=== PATIENT | male | born 1960 | race African-American/Black ===

== ENCOUNTER 2020-08-15 09:30 | Inpatient (IN) | payer OTHER ==
[2020-08-15 10:53] VITALS: BMI 31.1
[2020-08-15] MEDS ORDERED: IBUPROFEN 400 MG TABLET (FP) PO PRN (14:56)
[2020-08-15] MEDS ORDERED: MAG HYDROX/AL HYDROX/SIMETH 30 ML UNIT-DOSE CUP PO PRN (14:56)
[2020-08-15] MEDS ORDERED: BISMUTH SUBSALICYLATE 524 MG/30 ML UD PO PRN (14:56)
[2020-08-15] MEDS ORDERED: ACETAMINOPHEN 325 MG TABLET (FP) PO PRN (14:56)
[2020-08-15] MEDS ORDERED: MENTHOL/PHENOL 1 EACH UD MM PRN (14:56)
[2020-08-15] MEDS ORDERED: chlordiazePOXIDE HCL 25 MG CAPSULE PO PRN (14:56)
[2020-08-15] MEDS ORDERED: METHOCARBAMOL 500 MG TABLET PO PRN (14:56)
[2020-08-15] MEDS ORDERED: MAGNESIUM HYDROX 2400MG/30ML ORAL SUSPENSION 30 ML CUP PO PRN (14:56)
[2020-08-15] MEDS ORDERED: MAGNESIUM CITRATE 300 ML BOTTLE PO PRN (14:56)
[2020-08-15] MEDS ORDERED: ONDANSETRON *ODT* 4 MG TABLET SL PRN (14:56)
[2020-08-15] MEDS: chlordiazePOXIDE HCL 25 MG CAPSULE PO SCH ×2 (18:51→22:47)
[2020-08-15] MEDS: hydrOXYzine PAMOATE 25 MG CAPSULE (FP) PO SCH ×2 (18:53→22:50)
[2020-08-15] MEDS: THIAMINE HCL 100 MG TABLET (FP) PO SCH (22:50)
[2020-08-15] MEDS: MELATONIN 5 MG TABLETS PO SCH (22:50)
[2020-08-16] MEDS: chlordiazePOXIDE HCL 25 MG CAPSULE PO SCH ×4 (06:09→23:07)
[2020-08-16] MEDS: hydrOXYzine PAMOATE 25 MG CAPSULE (FP) PO SCH ×5 (06:09→23:45)
[2020-08-16] MEDS: PRENATAL VITAMINS W/ FOLIC ACID TABLET (FP) PO SCH (10:40)
[2020-08-16] MEDS: amLODIPine BESYLATE 10 MG TABLET (FP) PO SCH (12:01)
[2020-08-16 12:04] LABS: POTASSIUM 3.4 mmol/L (3.5-5.1)
[2020-08-16 12:12] LABS: CALCIUM 8.5 mg/dL (8.5-10.1)
[2020-08-16 12:13] LABS: ALBUMIN 2.8 g/dl (3.4-5.0); BLOOD UREA NITROGEN 15.5 mg/dL (7-18)
[2020-08-16 12:15] LABS: HEMATOCRIT 37.7 % (35.4-49); HEMOGLOBIN 12.5 GM/dL (11.7-16.9); MCH 27.9 pg (25.7-33.7); MCHC 33.2 g/dl (32.0-35.9); MEAN PLT VOLUME 10.4 fl (7.5-11.1); PLATELET COUNT 94 K/MM3 (134-434); RBC 4.49 M/mm3 (4.00-5.60); RDW 15.2 % (11.9-15.9)
[2020-08-16 12:16] LABS: CREATININE 1.3 mg/dL (0.55-1.3)
[2020-08-16 13:03] LABS: HIV INTERPRETATION NEGATIVE (NEGATIVE)
[2020-08-16] MEDS: LISINOPRIL 10 MG TABLET PO SCH ×2 (13:45→23:06)
[2020-08-16 14:39] LABS: SICKLE CELL SCREEN NEGATIVE (NEGATIVE)
[2020-08-16 14:42] LABS: WHITE BLOOD COUNT 1.9 K/mm3 (4.0-10.0)
[2020-08-16] MEDS ORDERED: POTASSIUM CHLORIDE ORAL LIQUID 20 MEQ/15 ML PO ONE (15:33)
[2020-08-16] MEDS: ACETAMINOPHEN 325 MG TABLET (FP) PO PRN (23:05)
[2020-08-16] MEDS: POTASSIUM CHLORIDE ORAL LIQUID 20 MEQ/15 ML PO SCH (23:06)
[2020-08-16] MEDS: MELATONIN 5 MG TABLETS PO SCH (23:11)
[2020-08-16] MEDS: THIAMINE HCL 100 MG TABLET (FP) PO SCH (23:45)
[2020-08-17] MEDS: chlordiazePOXIDE HCL 25 MG CAPSULE PO SCH ×4 (06:42→23:56)
[2020-08-17] MEDS: hydrOXYzine PAMOATE 25 MG CAPSULE (FP) PO SCH ×5 (06:45→23:56)
[2020-08-17] MEDS: amLODIPine BESYLATE 10 MG TABLET (FP) PO SCH (11:10)
[2020-08-17] MEDS: PRENATAL VITAMINS W/ FOLIC ACID TABLET (FP) PO SCH (11:10)
[2020-08-17] MEDS: ACETAMINOPHEN 325 MG TABLET (FP) PO PRN (11:11)
[2020-08-17] MEDS: LISINOPRIL 20 MG TABLET PO SCH ×2 (11:11→23:56)
[2020-08-17] MEDS: LISINOPRIL 10 MG TABLET PO SCH (11:17)
[2020-08-17] MEDS: POTASSIUM CHLORIDE ORAL LIQUID 20 MEQ/15 ML PO SCH ×2 (12:00→23:57)
[2020-08-17 15:57] LABS: PH,URINE 7.5 (5.0-8.0); URINE APPEARANCE CLEAR; URINE BILIRUBIN NEGATIVE (NEGATIVE); URINE COLOR YELLOW; URINE GLUCOSE (UA) 3+ (NEGATIVE); URINE KETONE NEGATIVE (NEGATIVE); URINE LEUK ESTERASE NEGATIVE (NEGATIVE); URINE NITRITE NEGATIVE (NEGATIVE); URINE PROTEIN NEGATIVE (NEGATIVE); URINE UROBILINOGEN 0.2 mg/dL (0.2-1.0)
[2020-08-17 16:00] LABS: HEMATOCRIT 41.4 % (35.4-49); HEMOGLOBIN 13.8 GM/dL (11.7-16.9); MCH 28.2 pg (25.7-33.7); MCHC 33.3 g/dl (32.0-35.9); MEAN CELL VOLUME 84.8 fl (80-96); RBC 4.88 M/mm3 (4.00-5.60); WHITE BLOOD COUNT 2.1 K/mm3 (4.0-10.0)
[2020-08-17 16:14] LABS: POTASSIUM 3.6 mmol/L (3.5-5.1)
[2020-08-17 16:22] LABS: ALBUMIN 3.5 g/dl (3.4-5.0); BLOOD UREA NITROGEN 9.7 mg/dL (7-18); CALCIUM 8.9 mg/dL (8.5-10.1); CREATININE 1.2 mg/dL (0.55-1.3)
[2020-08-17 16:23] LABS: INR 0.93 (0.83-1.09); PROTHROMBIN TIME (PATIENT) 11.3 SEC (9.7-13.0); TOT PROT 6.3 g/dl (6.4-8.2)
[2020-08-17 16:25] LABS: BILIRUBIN,TOTAL 0.9 mg/dL (0.2-1)
[2020-08-17 21:33] LABS: MEAN PLT VOLUME 10.5 fl (7.5-11.1); PLATELET COUNT 66 K/MM3 (134-434)
[2020-08-17] MEDS: THIAMINE HCL 100 MG TABLET (FP) PO SCH (23:56)
[2020-08-17] MEDS: MELATONIN 5 MG TABLETS PO SCH (23:56)
[2020-08-18] MEDS ORDERED: chlordiazePOXIDE HCL 10 MG CAPSULE PO PRN
[2020-08-18] MEDS: chlordiazePOXIDE HCL 10 MG CAPSULE PO SCH ×4 (05:40→23:01)
[2020-08-18] MEDS: hydrOXYzine PAMOATE 25 MG CAPSULE (FP) PO SCH ×5 (05:40→23:01)
[2020-08-18] MEDS: amLODIPine BESYLATE 10 MG TABLET (FP) PO SCH (10:46)
[2020-08-18] MEDS: PRENATAL VITAMINS W/ FOLIC ACID TABLET (FP) PO SCH (10:46)
[2020-08-18] MEDS: LISINOPRIL 20 MG TABLET PO SCH ×2 (10:46→23:01)
[2020-08-18] MEDS: POTASSIUM CHLORIDE ORAL LIQUID 20 MEQ/15 ML PO SCH ×2 (10:47→23:02)
[2020-08-18] MEDS: MELATONIN 5 MG TABLETS PO SCH (23:01)
[2020-08-18] MEDS: THIAMINE HCL 100 MG TABLET (FP) PO SCH (23:01)
[2020-08-19] MEDS ORDERED: chlordiazePOXIDE HCL 10 MG CAPSULE PO SCH (05:00)
[2020-08-19] MEDS: hydrOXYzine PAMOATE 25 MG CAPSULE (FP) PO SCH ×3 (07:06→13:26)
[2020-08-19] MEDS: LISINOPRIL 20 MG TABLET PO SCH (11:13)
[2020-08-19] MEDS: PRENATAL VITAMINS W/ FOLIC ACID TABLET (FP) PO SCH (11:13)
[2020-08-19] MEDS: amLODIPine BESYLATE 10 MG TABLET (FP) PO SCH (11:13)
[2020-08-19 13:18] VITALS: BP 118/68; PULSE 83; TEMP 98.3
[2020-08-20] MEDS ORDERED: chlordiazePOXIDE HCL 10 MG CAPSULE PO ONE (05:00)
== END 2020-08-19 13:35 | disposition home or self-care (01) | DRG 774 ==
LOC: YASAS 09:30 → Y6N 14:57
PROVIDERS: ADMIT Allergy & Immunology; ATTEND Allergy & Immunology
PROC: HZ2ZZZZ Detoxification Services for Substance Abuse Treatment (ICD-10-PCS; principal; 2020-08-15)
DX: F10.230 Alcohol dependence with withdrawal, uncomplicated (principal); F14.20 Cocaine dependence, uncomplicated; F12.20 Cannabis dependence, uncomplicated; F32.9 Major depressive disorder, single episode, unspecified; I10 Essential (primary) hypertension; E87.6 Hypokalemia; R73.9 Hyperglycemia, unspecified; U07.1 COVID-19; D72.819 Decreased white blood cell count, unspecified; D69.6 Thrombocytopenia, unspecified; W18.40XA Slipping, tripping and stumbling without falling, unspecified, initial encounter; Z56.0 Unemployment, unspecified
CPT/HCPCS: 36415; 80053; 81003; 82962; 85027; 85610; 85660; 86780; 87389; 93005; 93010; C9803; U0003

== ENCOUNTER 2020-11-20 11:20 | Inpatient (IN) | payer OTHER ==
[2020-11-20 15:46] VITALS: BMI 28.5
[2020-11-20] MEDS ORDERED: IBUPROFEN 400 MG TABLET (FP) PO PRN (18:06)
[2020-11-20] MEDS ORDERED: ONDANSETRON *ODT* 4 MG TABLET SL PRN (18:06)
[2020-11-20] MEDS ORDERED: MAGNESIUM HYDROX 2400MG/30ML ORAL SUSPENSION 30 ML CUP PO PRN (18:06)
[2020-11-20] MEDS ORDERED: METHOCARBAMOL 500 MG TABLET PO PRN (18:06)
[2020-11-20] MEDS ORDERED: MAG HYDROX/AL HYDROX/SIMETH 30 ML UNIT-DOSE CUP PO PRN (18:06)
[2020-11-20] MEDS ORDERED: chlordiazePOXIDE HCL 25 MG CAPSULE PO PRN (18:06)
[2020-11-20] MEDS ORDERED: ACETAMINOPHEN 325 MG TABLET (FP) PO PRN ×2 (18:06)
[2020-11-20] MEDS ORDERED: BISMUTH SUBSALICYLATE 524 MG/30 ML UD PO PRN (18:06)
[2020-11-20] MEDS ORDERED: MAGNESIUM CITRATE 300 ML BOTTLE PO PRN (18:06)
[2020-11-20] MEDS ORDERED: MENTHOL/PHENOL 1 EACH UD MM PRN (18:06)
[2020-11-20] MEDS: APIXABAN 5 MG TABLET PO SCH (23:04)
[2020-11-20] MEDS: MELATONIN 5 MG TABLETS PO SCH (23:04)
[2020-11-20] MEDS: chlordiazePOXIDE HCL 25 MG CAPSULE PO SCH (23:04)
[2020-11-20] MEDS: THIAMINE HCL 100 MG TABLET (FP) PO SCH (23:04)
[2020-11-21] MEDS ORDERED: chlordiazePOXIDE HCL 25 MG CAPSULE ONE (05:37)
[2020-11-21] MEDS: chlordiazePOXIDE HCL 25 MG CAPSULE PO SCH ×4 (05:40→23:35)
[2020-11-21 10:32] LABS: HEMOGLOBIN 12.8 GM/dL (11.7-16.9); MCH 28.3 pg (25.7-33.7); MCHC 33.7 g/dl (32.0-35.9); MEAN CELL VOLUME 83.8 fl (80-96); MEAN PLT VOLUME 9.6 fl (7.5-11.1); PLATELET COUNT 115 K/MM3 (134-434); RBC 4.53 M/mm3 (4.00-5.60); RDW 16.6 % (11.9-15.9)
[2020-11-21 10:59] LABS: ALBUMIN 2.9 g/dl (3.4-5.0); BLOOD UREA NITROGEN 18.6 mg/dL (7-18); CALCIUM 8.9 mg/dL (8.5-10.1)
[2020-11-21 11:03] LABS: BILIRUBIN,TOTAL 0.3 mg/dL (0.2-1); CREATININE 1.2 mg/dL (0.55-1.3); TOT PROT 5.4 g/dl (6.4-8.2)
[2020-11-21 11:57] LABS: WHITE BLOOD COUNT 1.8 K/mm3 (4.0-10.0)
[2020-11-21] MEDS: PRENATAL VITAMINS W/ FOLIC ACID TABLET (FP) PO SCH (12:21)
[2020-11-21] MEDS: APIXABAN 5 MG TABLET PO SCH ×2 (12:21→23:35)
[2020-11-21] MEDS: amLODIPine BESYLATE 10 MG TABLET (FP) PO SCH (12:21)
[2020-11-21] MEDS: metFORMIN HCL 500 MG TABLET (FP) PO SCH (17:40)
[2020-11-21] MEDS: THIAMINE HCL 100 MG TABLET (FP) PO SCH (23:36)
[2020-11-21] MEDS: MELATONIN 5 MG TABLETS PO SCH (23:36)
[2020-11-22] MEDS: metFORMIN HCL 500 MG TABLET (FP) PO SCH ×3 (00:52→17:54)
[2020-11-22] MEDS: chlordiazePOXIDE HCL 25 MG CAPSULE PO SCH ×4 (06:02→22:06)
[2020-11-22] MEDS: PRENATAL VITAMINS W/ FOLIC ACID TABLET (FP) PO SCH (10:16)
[2020-11-22] MEDS: amLODIPine BESYLATE 10 MG TABLET (FP) PO SCH (10:17)
[2020-11-22] MEDS: APIXABAN 5 MG TABLET PO SCH ×2 (11:37→22:07)
[2020-11-22] MEDS ORDERED: METOPROLOL TARTRATE 25 MG TABLET (FP) PO ONE (21:19)
[2020-11-22] MEDS: MELATONIN 5 MG TABLETS PO SCH (22:07)
[2020-11-22] MEDS: THIAMINE HCL 100 MG TABLET (FP) PO SCH (22:07)
[2020-11-23] MEDS ORDERED: chlordiazePOXIDE HCL 10 MG CAPSULE PO PRN
[2020-11-23] MEDS: chlordiazePOXIDE HCL 10 MG CAPSULE PO SCH ×2 (06:06→11:38)
[2020-11-23] MEDS: metFORMIN HCL 500 MG TABLET (FP) PO SCH (07:37)
[2020-11-23 08:56] VITALS: BP 142/92; PULSE 91; TEMP 96.9
[2020-11-23] MEDS: amLODIPine BESYLATE 10 MG TABLET (FP) PO SCH (11:38)
[2020-11-23] MEDS: APIXABAN 5 MG TABLET PO SCH (11:38)
[2020-11-23] MEDS: PRENATAL VITAMINS W/ FOLIC ACID TABLET (FP) PO SCH (11:38)
[2020-11-23 11:52] LABS: HEMOGLOBIN 11.9 GM/dL (11.7-16.9)
[2020-11-23 11:56] LABS: BASO % 1.7 % (0-2.0); EOS % 3.9 % (0-4.5); HEMATOCRIT 35.9 % (35.4-49); MCH 28.1 pg (25.7-33.7); MCHC 33.2 g/dl (32.0-35.9); MEAN CELL VOLUME 84.4 fl (80-96); MONO % 16.9 % (3.8-10.2); NEUT % 32.5 % (42.8-82.8); PLATELET COUNT 98 K/MM3 (134-434); RBC 4.25 M/mm3 (4.00-5.60); RDW 17.2 % (11.9-15.9)
[2020-11-23 12:03] LABS: WHITE BLOOD COUNT 1.7 K/mm3 (4.0-10.0)
[2020-11-23 13:15] LABS: ANISOCYTOSIS 0; MACROCYTOSIS 0; OVALOCYTE 1+; PLATELET ESTIMATE DECREASED
[2020-11-24] MEDS ORDERED: chlordiazePOXIDE HCL 10 MG CAPSULE PO SCH (05:00)
[2020-11-25] MEDS ORDERED: chlordiazePOXIDE HCL 10 MG CAPSULE PO ONE (05:00)
== END 2020-11-23 13:33 | disposition left against medical advice (07) | DRG 770 ==
LOC: YASAS 11:20 → Y3N 11-21 10:02
PROVIDERS: ADMIT Allergy & Immunology; ATTEND Allergy & Immunology
PROC: HZ2ZZZZ Detoxification Services for Substance Abuse Treatment (ICD-10-PCS; principal; 2020-11-21)
DX: F10.230 Alcohol dependence with withdrawal, uncomplicated (principal); F14.20 Cocaine dependence, uncomplicated; F12.20 Cannabis dependence, uncomplicated; F32.9 Major depressive disorder, single episode, unspecified; Z21 Asymptomatic human immunodeficiency virus [HIV] infection status; D72.819 Decreased white blood cell count, unspecified; E11.9 Type 2 diabetes mellitus without complications; Z79.84 Long term (current) use of oral hypoglycemic drugs; E78.5 Hyperlipidemia, unspecified; I10 Essential (primary) hypertension; Z86.711 Personal history of pulmonary embolism; Z79.01 Long term (current) use of anticoagulants; Z86.16 Personal history of COVID-19; Z98.890 Other specified postprocedural states; Z56.0 Unemployment, unspecified; Z59.0 Homelessness
CPT/HCPCS: 36415; 80053; 82962; 85025; 85027; 86780

== ENCOUNTER 2021-01-26 12:15 | Inpatient (IN) | payer OTHER ==
[2021-01-26 13:24] VITALS: BMI 29.1
[2021-01-26] MEDS ORDERED: ONDANSETRON *ODT* 4 MG TABLET SL PRN (13:44)
[2021-01-26] MEDS ORDERED: MAG HYDROX/AL HYDROX/SIMETH 30 ML UNIT-DOSE CUP PO PRN (13:44)
[2021-01-26] MEDS ORDERED: MENTHOL/PHENOL 1 EACH UD MM PRN (13:44)
[2021-01-26] MEDS ORDERED: LORazepam 1 MG TABLET PO PRN (13:44)
[2021-01-26] MEDS ORDERED: ACETAMINOPHEN 325 MG TABLET (FP) PO PRN (13:44)
[2021-01-26] MEDS ORDERED: BISMUTH SUBSALICYLATE 524 MG/30 ML PO PRN (13:44)
[2021-01-26] MEDS ORDERED: IBUPROFEN 400 MG TABLET (FP) PO PRN (13:44)
[2021-01-26] MEDS ORDERED: MAGNESIUM HYDROX 2400MG/30ML ORAL SUSPENSION 30 ML CUP PO PRN (13:44)
[2021-01-26] MEDS ORDERED: MAGNESIUM CITRATE 300 ML BOTTLE PO PRN (13:44)
[2021-01-26] MEDS ORDERED: APIXABAN 5 MG TABLET PO SCH (13:45)
[2021-01-26 16:18] LABS: HEMATOCRIT 38.3 % (35.4-49); HEMOGLOBIN 12.7 GM/dL (11.7-16.9); MCH 27.4 pg (25.7-33.7); MEAN CELL VOLUME 82.9 fl (80-96); MEAN PLT VOLUME 9.3 fl (7.5-11.1); PLATELET COUNT 118 10^3/uL (134-434); RBC 4.62 M/mm3 (4.00-5.60); RDW 16.2 % (11.9-15.9); WHITE BLOOD COUNT 2.4 K/mm3 (4.0-10.0)
[2021-01-26 16:23] LABS: ALBUMIN 3.5 g/dl (3.4-5.0); BLOOD UREA NITROGEN 20.3 mg/dL (7-18); CALCIUM 8.5 mg/dL (8.5-10.1)
[2021-01-26 16:26] LABS: CREATININE 1.3 mg/dL (0.55-1.3)
[2021-01-26 16:28] LABS: BILIRUBIN,TOTAL 0.8 mg/dL (0.2-1); TOT PROT 5.9 g/dl (6.4-8.2)
[2021-01-26] MEDS: LORazepam 2 MG TABLET PO SCH ×2 (18:13→22:19)
[2021-01-26] MEDS: amLODIPine BESYLATE 10 MG TABLET (FP) PO SCH (18:14)
[2021-01-26] MEDS: PRENATAL VITAMINS W/ FOLIC ACID TABLET (FP) PO SCH (18:15)
[2021-01-26] MEDS: hydrOXYzine PAMOATE 25 MG CAPSULE (FP) PO SCH ×3 (18:15→22:19)
[2021-01-26] MEDS: metFORMIN HCL 500 MG TABLET (FP) PO SCH (18:15)
[2021-01-26] MEDS: METHOCARBAMOL 500 MG TABLET PO PRN (18:16)
[2021-01-26] MEDS ORDERED: MELATONIN 5 MG TABLETS PO SCH (22:00)
[2021-01-26] MEDS: APIXABAN 5 MG TABLET PO SCH (22:18)
[2021-01-26] MEDS: THIAMINE HCL 100 MG TABLET (FP) PO SCH (22:19)
[2021-01-27] MEDS: hydrOXYzine PAMOATE 25 MG CAPSULE (FP) PO SCH ×5 (06:11→22:27)
[2021-01-27] MEDS: metFORMIN HCL 500 MG TABLET (FP) PO SCH ×2 (06:13→17:25)
[2021-01-27] MEDS: LORazepam 2 MG TABLET PO SCH ×4 (06:13→22:27)
[2021-01-27] MEDS: PRENATAL VITAMINS W/ FOLIC ACID TABLET (FP) PO SCH (10:45)
[2021-01-27] MEDS: ACETAMINOPHEN 325 MG TABLET (FP) PO PRN (10:46)
[2021-01-27] MEDS: amLODIPine BESYLATE 10 MG TABLET (FP) PO SCH (10:46)
[2021-01-27] MEDS: APIXABAN 5 MG TABLET PO SCH ×2 (10:46→22:26)
[2021-01-27] MEDS: INSULIN SLIDING SCALE (NOVOLOG) 1 VIAL SQ SCH ×3 (11:43→22:26)
[2021-01-27] MEDS ORDERED: MELATONIN 5 MG TABLETS PO PRN (15:35)
[2021-01-27] MEDS: THIAMINE HCL 100 MG TABLET (FP) PO SCH (22:27)
[2021-01-28] MEDS: hydrOXYzine PAMOATE 25 MG CAPSULE (FP) PO SCH ×5 (06:23→22:19)
[2021-01-28] MEDS: metFORMIN HCL 500 MG TABLET (FP) PO SCH ×2 (06:24→17:56)
[2021-01-28] MEDS: LORazepam 1 MG TABLET PO SCH ×4 (06:27→22:16)
[2021-01-28] MEDS: ACETAMINOPHEN 325 MG TABLET (FP) PO PRN ×2 (06:28→17:54)
[2021-01-28] MEDS: INSULIN SLIDING SCALE (NOVOLOG) 1 VIAL SQ SCH ×4 (06:28→22:22)
[2021-01-28] MEDS: PRENATAL VITAMINS W/ FOLIC ACID TABLET (FP) PO SCH (10:32)
[2021-01-28] MEDS: amLODIPine BESYLATE 10 MG TABLET (FP) PO SCH (10:32)
[2021-01-28] MEDS: APIXABAN 5 MG TABLET PO SCH ×2 (10:32→22:15)
[2021-01-28] MEDS: METHOCARBAMOL 500 MG TABLET PO PRN (12:02)
[2021-01-28] MEDS ORDERED: BENZOCAINE 20 % GEL TUBE MM PRN (15:38)
[2021-01-28] MEDS: THIAMINE HCL 100 MG TABLET (FP) PO SCH (22:15)
[2021-01-29] MEDS ORDERED: LORazepam 0.5 MG TABLET PO PRN
[2021-01-29] MEDS: LORazepam 0.5 MG TABLET PO SCH ×4 (05:39→23:28)
[2021-01-29] MEDS: hydrOXYzine PAMOATE 25 MG CAPSULE (FP) PO SCH ×5 (05:39→23:27)
[2021-01-29] MEDS: ACETAMINOPHEN 325 MG TABLET (FP) PO PRN ×3 (05:50→17:54)
[2021-01-29] MEDS: metFORMIN HCL 500 MG TABLET (FP) PO SCH ×2 (07:09→17:52)
[2021-01-29] MEDS: INSULIN SLIDING SCALE (NOVOLOG) 1 VIAL SQ SCH ×4 (07:10→23:22)
[2021-01-29] MEDS: PRENATAL VITAMINS W/ FOLIC ACID TABLET (FP) PO SCH (10:35)
[2021-01-29] MEDS: APIXABAN 5 MG TABLET PO SCH ×2 (10:35→23:22)
[2021-01-29] MEDS: amLODIPine BESYLATE 10 MG TABLET (FP) PO SCH (10:36)
[2021-01-29 12:08] LABS: SARS-CoV-2 NAA Not Detected (Not Detected)
[2021-01-29] MEDS: METHOCARBAMOL 500 MG TABLET PO PRN (14:20)
[2021-01-29] MEDS: THIAMINE HCL 100 MG TABLET (FP) PO SCH (23:27)
[2021-01-30] MEDS ORDERED: LORazepam 0.5 MG TABLET PO ONE (05:00)
[2021-01-30] MEDS: hydrOXYzine PAMOATE 25 MG CAPSULE (FP) PO SCH ×3 (05:58→13:13)
[2021-01-30] MEDS: ACETAMINOPHEN 325 MG TABLET (FP) PO PRN ×2 (05:59→15:16)
[2021-01-30] MEDS: INSULIN SLIDING SCALE (NOVOLOG) 1 VIAL SQ SCH ×2 (08:01→10:14)
[2021-01-30] MEDS: metFORMIN HCL 500 MG TABLET (FP) PO SCH (08:02)
[2021-01-30] MEDS: amLODIPine BESYLATE 10 MG TABLET (FP) PO SCH (10:13)
[2021-01-30] MEDS: PRENATAL VITAMINS W/ FOLIC ACID TABLET (FP) PO SCH (10:13)
[2021-01-30] MEDS: APIXABAN 5 MG TABLET PO SCH (10:14)
[2021-01-30 13:49] VITALS: BP 135/82; PULSE 108; TEMP 97.9
== END 2021-01-30 16:00 | disposition other institution (70) | DRG 774 ==
LOC: YASAS 12:15 → Y6N 14:22 → Y3N 14:29
PROVIDERS: ADMIT Allergy & Immunology; ATTEND Allergy & Immunology
PROC: HZ2ZZZZ Detoxification Services for Substance Abuse Treatment (ICD-10-PCS; principal; 2021-01-26)
DX: F10.230 Alcohol dependence with withdrawal, uncomplicated (principal); F14.20 Cocaine dependence, uncomplicated; F12.20 Cannabis dependence, uncomplicated; F19.24 Other psychoactive substance dependence with psychoactive substance-induced mood disorder; F19.282 Other psychoactive substance dependence with psychoactive substance-induced sleep disorder; I10 Essential (primary) hypertension; D69.6 Thrombocytopenia, unspecified; D72.819 Decreased white blood cell count, unspecified; N17.9 Acute kidney failure, unspecified; E11.9 Type 2 diabetes mellitus without complications; E78.5 Hyperlipidemia, unspecified; Z86.711 Personal history of pulmonary embolism; Z88.8 Allergy status to other drugs, medicaments and biological substances; Z79.84 Long term (current) use of oral hypoglycemic drugs
CPT/HCPCS: 36415; 80053; 82962; 85027; 86780; C9803; U0003; U0005

== ENCOUNTER 2021-01-30 16:42 | Inpatient (IN) | payer OTHER ==
[2021-01-30] MEDS ORDERED: IBUPROFEN 400 MG TABLET (FP) PO PRN (17:10)
[2021-01-30] MEDS ORDERED: MAG HYDROX/AL HYDROX/SIMETH 30 ML UNIT-DOSE CUP PO PRN (17:10)
[2021-01-30] MEDS ORDERED: NICOTINE POLACRILEX 2 MG GUM BUC PRN (17:10)
[2021-01-30] MEDS ORDERED: MENTHOL/PHENOL 1 EACH UD MM PRN (17:10)
[2021-01-30] MEDS ORDERED: P-EPHED 60MG/TRIPROLIDI 2.5MG TABLET PO PRN (17:10)
[2021-01-30] MEDS ORDERED: guaiFENesin 200 MG/10 ML 10 ML UNIT-DOSE CUPS PO PRN (17:10)
[2021-01-30] MEDS ORDERED: LOPERAMIDE HCL 2 MG CAPSULE PO PRN (17:10)
[2021-01-30] MEDS ORDERED: MAGNESIUM CITRATE 300 ML BOTTLE PO PRN (17:10)
[2021-01-30] MEDS: ACETAMINOPHEN 325 MG TABLET (FP) PO PRN (20:01)
[2021-01-30] MEDS: hydrOXYzine PAMOATE 25 MG CAPSULE (FP) PO PRN (20:01)
[2021-01-30] MEDS ORDERED: cloNIDine HCL 0.1 MG TABLET PO ONE (20:22)
[2021-01-30] MEDS: THIAMINE HCL 100 MG TABLET (FP) PO SCH (21:06)
[2021-01-30] MEDS: MELATONIN 5 MG TABLETS PO SCH (21:06)
[2021-01-30] MEDS: APIXABAN 5 MG TABLET PO SCH (21:07)
[2021-01-31] MEDS: INSULIN SLIDING SCALE (NOVOLOG) 1 VIAL SQ SCH ×2 (06:27→17:36)
[2021-01-31] MEDS: ACETAMINOPHEN 325 MG TABLET (FP) PO PRN (06:28)
[2021-01-31] MEDS: metFORMIN HCL 500 MG TABLET (FP) PO SCH ×2 (06:29→17:36)
[2021-01-31] MEDS: PRENATAL VITAMINS W/ FOLIC ACID TABLET (FP) PO SCH (09:40)
[2021-01-31] MEDS: amLODIPine BESYLATE 10 MG TABLET (FP) PO SCH (09:40)
[2021-01-31] MEDS: APIXABAN 5 MG TABLET PO SCH ×2 (09:41→21:06)
[2021-01-31] MEDS ORDERED: INSULIN (NOVOLOG) ASPART 100 UNITS/ML 10ML VIAL ONE (17:14)
[2021-01-31] MEDS: MELATONIN 5 MG TABLETS PO SCH (21:06)
[2021-01-31] MEDS: THIAMINE HCL 100 MG TABLET (FP) PO SCH (21:06)
[2021-01-31] MEDS: hydrOXYzine PAMOATE 25 MG CAPSULE (FP) PO PRN (21:07)
[2021-02-01] MEDS: hydrOXYzine PAMOATE 25 MG CAPSULE (FP) PO PRN (01:11)
[2021-02-01] MEDS: ACETAMINOPHEN 325 MG TABLET (FP) PO PRN ×3 (01:11→16:54)
[2021-02-01] MEDS: metFORMIN HCL 500 MG TABLET (FP) PO SCH ×2 (06:27→16:54)
[2021-02-01] MEDS: INSULIN SLIDING SCALE (NOVOLOG) 1 VIAL SQ SCH ×2 (06:28→17:59)
[2021-02-01] MEDS: APIXABAN 5 MG TABLET PO SCH ×2 (10:04→21:12)
[2021-02-01] MEDS: amLODIPine BESYLATE 10 MG TABLET (FP) PO SCH (10:04)
[2021-02-01] MEDS: PRENATAL VITAMINS W/ FOLIC ACID TABLET (FP) PO SCH (10:04)
[2021-02-01] MEDS ORDERED: INSULIN (NOVOLOG MIX 70/30) 100 UNITS/ML MDV SQ ONE (17:32)
[2021-02-01] MEDS: THIAMINE HCL 100 MG TABLET (FP) PO SCH (21:12)
[2021-02-01] MEDS: SUVOREXANT 10 MG TABLET PO PRN (21:14)
[2021-02-02] MEDS: ACETAMINOPHEN 325 MG TABLET (FP) PO PRN ×4 (02:01→21:37)
[2021-02-02] MEDS: hydrOXYzine PAMOATE 25 MG CAPSULE (FP) PO PRN ×2 (06:20→21:37)
[2021-02-02] MEDS: metFORMIN HCL 500 MG TABLET (FP) PO SCH ×2 (06:20→16:59)
[2021-02-02] MEDS: INSULIN SLIDING SCALE (NOVOLOG) 1 VIAL SQ SCH ×2 (06:21→17:01)
[2021-02-02] MEDS ORDERED: LIDOCAINE VISCOUS 2% ORAL/TOP 20 ML UNIT-DOSE CUP MM PRN (09:41)
[2021-02-02] MEDS: PRENATAL VITAMINS W/ FOLIC ACID TABLET (FP) PO SCH (09:48)
[2021-02-02] MEDS: MAGNESIUM HYDROX 2400MG/30ML ORAL SUSPENSION 30 ML CUP PO PRN (09:49)
[2021-02-02] MEDS: APIXABAN 5 MG TABLET PO SCH ×2 (09:49→21:38)
[2021-02-02] MEDS: amLODIPine BESYLATE 10 MG TABLET (FP) PO SCH (09:49)
[2021-02-02] MEDS ORDERED: INSULIN (NOVOLOG) ASPART 100 UNITS/ML 10ML VIAL ONE (16:56)
[2021-02-02] MEDS: THIAMINE HCL 100 MG TABLET (FP) PO SCH (21:37)
[2021-02-02] MEDS: SUVOREXANT 10 MG TABLET PO PRN (21:38)
[2021-02-03] MEDS: ACETAMINOPHEN 325 MG TABLET (FP) PO PRN ×2 (03:29→09:58)
[2021-02-03] MEDS: hydrOXYzine PAMOATE 25 MG CAPSULE (FP) PO PRN (03:29)
[2021-02-03] MEDS: metFORMIN HCL 500 MG TABLET (FP) PO SCH ×2 (06:14→16:48)
[2021-02-03] MEDS: INSULIN SLIDING SCALE (NOVOLOG) 1 VIAL SQ SCH ×2 (06:15→16:48)
[2021-02-03] MEDS: PRENATAL VITAMINS W/ FOLIC ACID TABLET (FP) PO SCH (09:57)
[2021-02-03] MEDS: amLODIPine BESYLATE 10 MG TABLET (FP) PO SCH (09:57)
[2021-02-03] MEDS: APIXABAN 5 MG TABLET PO SCH ×2 (09:57→21:08)
[2021-02-03] MEDS ORDERED: MASKS NR ONE (14:29)
[2021-02-03] MEDS: SUVOREXANT 10 MG TABLET PO PRN (21:07)
[2021-02-03] MEDS: THIAMINE HCL 100 MG TABLET (FP) PO SCH (21:08)
[2021-02-04] MEDS: ACETAMINOPHEN 325 MG TABLET (FP) PO PRN ×3 (02:56→21:30)
[2021-02-04] MEDS: metFORMIN HCL 500 MG TABLET (FP) PO SCH ×2 (06:16→16:51)
[2021-02-04] MEDS: INSULIN SLIDING SCALE (NOVOLOG) 1 VIAL SQ SCH ×2 (06:17→16:51)
[2021-02-04] MEDS: amLODIPine BESYLATE 10 MG TABLET (FP) PO SCH (10:00)
[2021-02-04] MEDS: APIXABAN 5 MG TABLET PO SCH ×2 (10:00→21:29)
[2021-02-04] MEDS: PRENATAL VITAMINS W/ FOLIC ACID TABLET (FP) PO SCH (10:00)
[2021-02-04] MEDS: hydrOXYzine PAMOATE 25 MG CAPSULE (FP) PO PRN (10:01)
[2021-02-04] MEDS ORDERED: AMOXICILLIN 500 MG CAPSULE (FP) PO ONE (10:38)
[2021-02-04] MEDS: AMOXICILLIN 500 MG CAPSULE (FP) PO SCH ×2 (15:06→21:29)
[2021-02-04] MEDS ORDERED: PT OWN MED DRAWER 7, Y5N ONE ×2 (17:22→19:04)
[2021-02-04] MEDS: MAGNESIUM HYDROX 2400MG/30ML ORAL SUSPENSION 30 ML CUP PO PRN (19:40)
[2021-02-04] MEDS: THIAMINE HCL 100 MG TABLET (FP) PO SCH (21:29)
[2021-02-04] MEDS: SUVOREXANT 10 MG TABLET PO PRN (21:30)
[2021-02-05] MEDS ORDERED: PT OWN MED DRAWER 7, Y5N ONE ×4 (06:37→21:37)
[2021-02-05] MEDS: INSULIN SLIDING SCALE (NOVOLOG) 1 VIAL SQ SCH ×2 (06:43→16:32)
[2021-02-05] MEDS: AMOXICILLIN 500 MG CAPSULE (FP) PO SCH ×3 (06:43→21:34)
[2021-02-05] MEDS: metFORMIN HCL 500 MG TABLET (FP) PO SCH ×2 (06:43→16:23)
[2021-02-05] MEDS: PRENATAL VITAMINS W/ FOLIC ACID TABLET (FP) PO SCH (10:01)
[2021-02-05] MEDS: amLODIPine BESYLATE 10 MG TABLET (FP) PO SCH (10:01)
[2021-02-05] MEDS: APIXABAN 5 MG TABLET PO SCH ×2 (10:01→21:34)
[2021-02-05] MEDS: ACETAMINOPHEN 325 MG TABLET (FP) PO PRN (16:23)
[2021-02-05] MEDS: THIAMINE HCL 100 MG TABLET (FP) PO SCH (21:34)
[2021-02-05] MEDS: SUVOREXANT 10 MG TABLET PO PRN (21:36)
[2021-02-05] MEDS: hydrOXYzine PAMOATE 25 MG CAPSULE (FP) PO PRN (21:37)
[2021-02-06] MEDS: AMOXICILLIN 500 MG CAPSULE (FP) PO SCH ×3 (06:15→21:25)
[2021-02-06] MEDS: INSULIN SLIDING SCALE (NOVOLOG) 1 VIAL SQ SCH ×2 (06:15→17:03)
[2021-02-06] MEDS: metFORMIN HCL 500 MG TABLET (FP) PO SCH ×2 (06:15→17:03)
[2021-02-06] MEDS: APIXABAN 5 MG TABLET PO SCH ×2 (09:31→21:25)
[2021-02-06] MEDS: PRENATAL VITAMINS W/ FOLIC ACID TABLET (FP) PO SCH (09:31)
[2021-02-06] MEDS: amLODIPine BESYLATE 10 MG TABLET (FP) PO SCH (09:31)
[2021-02-06] MEDS: THIAMINE HCL 100 MG TABLET (FP) PO SCH (21:25)
[2021-02-06] MEDS: SUVOREXANT 10 MG TABLET PO PRN (21:26)
[2021-02-07] MEDS: AMOXICILLIN 500 MG CAPSULE (FP) PO SCH ×3 (06:25→21:23)
[2021-02-07] MEDS: INSULIN SLIDING SCALE (NOVOLOG) 1 VIAL SQ SCH ×2 (06:25→16:52)
[2021-02-07] MEDS: metFORMIN HCL 500 MG TABLET (FP) PO SCH ×2 (06:25→16:54)
[2021-02-07] MEDS: PRENATAL VITAMINS W/ FOLIC ACID TABLET (FP) PO SCH (09:26)
[2021-02-07] MEDS: amLODIPine BESYLATE 10 MG TABLET (FP) PO SCH (09:26)
[2021-02-07] MEDS: APIXABAN 5 MG TABLET PO SCH ×2 (09:26→21:23)
[2021-02-07] MEDS ORDERED: PT OWN MED DRAWER 7, Y5N ONE (12:36)
[2021-02-07] MEDS: THIAMINE HCL 100 MG TABLET (FP) PO SCH (21:23)
[2021-02-07] MEDS: SUVOREXANT 10 MG TABLET PO PRN (21:24)
[2021-02-08] MEDS ORDERED: PT OWN MED DRAWER 7, Y5N ONE ×2 (06:18→13:50)
[2021-02-08] MEDS: AMOXICILLIN 500 MG CAPSULE (FP) PO SCH ×3 (06:50→21:27)
[2021-02-08] MEDS: INSULIN SLIDING SCALE (NOVOLOG) 1 VIAL SQ SCH ×2 (06:50→17:06)
[2021-02-08] MEDS: metFORMIN HCL 500 MG TABLET (FP) PO SCH ×2 (06:50→17:05)
[2021-02-08] MEDS: PRENATAL VITAMINS W/ FOLIC ACID TABLET (FP) PO SCH (10:02)
[2021-02-08] MEDS: amLODIPine BESYLATE 10 MG TABLET (FP) PO SCH (10:02)
[2021-02-08] MEDS: APIXABAN 5 MG TABLET PO SCH ×2 (10:02→21:27)
[2021-02-08] MEDS: THIAMINE HCL 100 MG TABLET (FP) PO SCH (21:27)
[2021-02-08] MEDS: SUVOREXANT 10 MG TABLET PO PRN (21:28)
[2021-02-09] MEDS: INSULIN SLIDING SCALE (NOVOLOG) 1 VIAL SQ SCH ×2 (06:20→17:38)
[2021-02-09] MEDS: metFORMIN HCL 500 MG TABLET (FP) PO SCH ×2 (06:20→17:37)
[2021-02-09] MEDS: AMOXICILLIN 500 MG CAPSULE (FP) PO SCH ×3 (06:20→21:39)
[2021-02-09] MEDS ORDERED: PT OWN MED DRAWER 7, Y5N ONE ×2 (06:20→19:56)
[2021-02-09] MEDS: APIXABAN 5 MG TABLET PO SCH ×2 (09:09→21:10)
[2021-02-09] MEDS: amLODIPine BESYLATE 10 MG TABLET (FP) PO SCH (09:09)
[2021-02-09] MEDS: PRENATAL VITAMINS W/ FOLIC ACID TABLET (FP) PO SCH (09:09)
[2021-02-09] MEDS: SUVOREXANT 10 MG TABLET PO PRN (21:08)
[2021-02-09] MEDS: THIAMINE HCL 100 MG TABLET (FP) PO SCH (21:10)
[2021-02-10] MEDS ORDERED: PT OWN MED DRAWER 7, Y5N ONE ×2 (06:09→12:51)
[2021-02-10] MEDS: INSULIN SLIDING SCALE (NOVOLOG) 1 VIAL SQ SCH ×2 (06:13→16:54)
[2021-02-10] MEDS: AMOXICILLIN 500 MG CAPSULE (FP) PO SCH ×3 (06:13→21:23)
[2021-02-10] MEDS: metFORMIN HCL 500 MG TABLET (FP) PO SCH ×2 (06:13→16:54)
[2021-02-10] MEDS: PRENATAL VITAMINS W/ FOLIC ACID TABLET (FP) PO SCH (09:54)
[2021-02-10] MEDS: amLODIPine BESYLATE 10 MG TABLET (FP) PO SCH (09:54)
[2021-02-10] MEDS: APIXABAN 5 MG TABLET PO SCH ×2 (09:54→21:20)
[2021-02-10] MEDS: THIAMINE HCL 100 MG TABLET (FP) PO SCH (21:20)
[2021-02-10] MEDS ORDERED: SUVOREXANT 10 MG TABLET PO PRN (22:00)
[2021-02-11] MEDS ORDERED: PT OWN MED DRAWER 7, Y5N ONE (06:27)
[2021-02-11] MEDS: metFORMIN HCL 500 MG TABLET (FP) PO SCH (06:37)
[2021-02-11] MEDS: AMOXICILLIN 500 MG CAPSULE (FP) PO SCH (06:37)
[2021-02-11] MEDS: INSULIN SLIDING SCALE (NOVOLOG) 1 VIAL SQ SCH (06:38)
[2021-02-11 06:54] VITALS: TEMP 97.3
[2021-02-11 08:52] VITALS: BP 145/77; PULSE 73
[2021-02-11] MEDS: amLODIPine BESYLATE 10 MG TABLET (FP) PO SCH (09:19)
[2021-02-11] MEDS: PRENATAL VITAMINS W/ FOLIC ACID TABLET (FP) PO SCH (09:19)
[2021-02-11] MEDS: APIXABAN 5 MG TABLET PO SCH (09:19)
== END 2021-02-11 10:05 | disposition home or self-care (01) | DRG 772 ==
LOC: YASAS 16:42 → Y3E 16:43
PROVIDERS: ADMIT Allergy & Immunology; ATTEND Allergy & Immunology
PROC: HZ42ZZZ Group Counseling for Substance Abuse Treatment, Cognitive-Behavioral (ICD-10-PCS; principal; 2021-01-30)
DX: F10.20 Alcohol dependence, uncomplicated (principal); F14.20 Cocaine dependence, uncomplicated; F12.20 Cannabis dependence, uncomplicated; F19.282 Other psychoactive substance dependence with psychoactive substance-induced sleep disorder; F19.24 Other psychoactive substance dependence with psychoactive substance-induced mood disorder; F32.9 Major depressive disorder, single episode, unspecified; D69.6 Thrombocytopenia, unspecified; I10 Essential (primary) hypertension; E78.5 Hyperlipidemia, unspecified; E11.9 Type 2 diabetes mellitus without complications; Z79.4 Long term (current) use of insulin; K02.9 Dental caries, unspecified; Z86.711 Personal history of pulmonary embolism; Z79.01 Long term (current) use of anticoagulants; Z98.890 Other specified postprocedural states; Z88.0 Allergy status to penicillin
CPT/HCPCS: 82962; J0735

== ENCOUNTER 2021-08-26 16:45 | Inpatient (IN) | payer OTHER ==
[2021-08-26 23:51] VITALS: BMI 28.5
[2021-08-27] MEDS ORDERED: MAGNESIUM HYDROX 2400MG/30ML ORAL SUSPENSION 30 ML CUP PO PRN (00:05)
[2021-08-27] MEDS ORDERED: MELATONIN 5 MG TABLETS PO PRN (00:05)
[2021-08-27] MEDS ORDERED: IBUPROFEN 400 MG TABLET (FP) PO PRN (00:05)
[2021-08-27] MEDS ORDERED: MENTHOL/PHENOL 1 EACH UD MM PRN (00:05)
[2021-08-27] MEDS ORDERED: chlordiazePOXIDE HCL 25 MG CAPSULE PO ONE (00:05)
[2021-08-27] MEDS ORDERED: chlordiazePOXIDE HCL 25 MG CAPSULE PO PRN (00:05)
[2021-08-27] MEDS ORDERED: ACETAMINOPHEN 325 MG TABLET (FP) PO PRN ×2 (00:05)
[2021-08-27] MEDS ORDERED: ONDANSETRON *ODT* 4 MG TABLET SL PRN (00:05)
[2021-08-27] MEDS ORDERED: BISMUTH SUBSALICYLATE 524 MG/30 ML PO PRN (00:05)
[2021-08-27] MEDS ORDERED: MAGNESIUM CITRATE 300 ML BOTTLE PO PRN (00:05)
[2021-08-27] MEDS ORDERED: MAG HYDROX/AL HYDROX/SIMETH 30 ML UNIT-DOSE CUP PO PRN (00:05)
[2021-08-27] MEDS: hydrOXYzine PAMOATE 25 MG CAPSULE (FP) PO SCH ×5 (07:01→23:29)
[2021-08-27] MEDS: chlordiazePOXIDE HCL 25 MG CAPSULE PO SCH ×4 (07:01→23:28)
[2021-08-27] MEDS: INSULIN SLIDING SCALE (NOVOLOG) 1 VIAL SQ SCH ×4 (07:53→23:28)
[2021-08-27] MEDS: TOLNAFTATE 1% CREAM 15 GM TUBE TP SCH ×2 (11:00→23:28)
[2021-08-27] MEDS: PRENATAL VITAMINS W/ FOLIC ACID TABLET (FP) PO SCH (11:04)
[2021-08-27] MEDS: metFORMIN HCL 500 MG TABLET (FP) PO SCH ×2 (11:04→23:28)
[2021-08-27] MEDS: amLODIPine BESYLATE 10 MG TABLET (FP) PO SCH (11:04)
[2021-08-27] MEDS: BACITRACIN 15 GM TUBE TOPICAL OINTMENT TP SCH ×2 (15:37→23:28)
[2021-08-27] MEDS: METHOCARBAMOL 500 MG TABLET PO PRN (18:04)
[2021-08-27] MEDS: THIAMINE HCL 100 MG TABLET (FP) PO SCH (23:29)
[2021-08-28] MEDS: chlordiazePOXIDE HCL 25 MG CAPSULE PO SCH ×4 (07:31→23:08)
[2021-08-28] MEDS: hydrOXYzine PAMOATE 25 MG CAPSULE (FP) PO SCH ×5 (07:56→23:09)
[2021-08-28] MEDS: INSULIN SLIDING SCALE (NOVOLOG) 1 VIAL SQ SCH ×4 (07:58→22:58)
[2021-08-28] MEDS ORDERED: CEPHALEXIN MONOHYDRATE 500 MG CAPSULE (UD) PO SCH (10:45)
[2021-08-28] MEDS: TOLNAFTATE 1% CREAM 15 GM TUBE TP SCH ×2 (11:12→22:59)
[2021-08-28] MEDS: amLODIPine BESYLATE 10 MG TABLET (FP) PO SCH (11:12)
[2021-08-28] MEDS: BACITRACIN 15 GM TUBE TOPICAL OINTMENT TP SCH ×2 (11:12→22:58)
[2021-08-28] MEDS: PRENATAL VITAMINS W/ FOLIC ACID TABLET (FP) PO SCH (11:12)
[2021-08-28] MEDS: metFORMIN HCL 500 MG TABLET (FP) PO SCH ×2 (11:18→16:54)
[2021-08-28 12:04] LABS: HEMATOCRIT 37.9 % (35.4-49); HEMOGLOBIN 12.6 GM/dL (11.7-16.9); MCH 28.2 pg (25.7-33.7); MCHC 33.1 g/dl (32.0-35.9); MEAN CELL VOLUME 85.1 fl (80-96); MEAN PLT VOLUME 9.5 fl (7.5-11.1); PLATELET COUNT 121 10^3/uL (134-434); RBC 4.46 M/mm3 (4.00-5.60); RDW 16.7 % (11.9-15.9)
[2021-08-28 12:08] LABS: CALCIUM 8.4 mg/dL (8.5-10.1)
[2021-08-28 12:09] LABS: ALBUMIN 2.9 g/dl (3.4-5.0); BLOOD UREA NITROGEN 12.6 mg/dL (7-18)
[2021-08-28 12:14] LABS: BILIRUBIN,TOTAL 0.3 mg/dL (0.2-1); TOT PROT 5.3 g/dl (6.4-8.2)
[2021-08-28 12:25] LABS: WHITE BLOOD COUNT 1.8 K/mm3 (4.0-10.0)
[2021-08-28] MEDS: METHOCARBAMOL 500 MG TABLET PO PRN (23:08)
[2021-08-28] MEDS: THIAMINE HCL 100 MG TABLET (FP) PO SCH (23:09)
[2021-08-29] MEDS ORDERED: chlordiazePOXIDE HCL 10 MG CAPSULE PO PRN
[2021-08-29] MEDS: chlordiazePOXIDE HCL 10 MG CAPSULE PO SCH ×4 (06:17→23:45)
[2021-08-29] MEDS: hydrOXYzine PAMOATE 25 MG CAPSULE (FP) PO SCH ×5 (06:18→23:44)
[2021-08-29] MEDS: metFORMIN HCL 500 MG TABLET (FP) PO SCH ×2 (06:18→17:23)
[2021-08-29] MEDS: INSULIN SLIDING SCALE (NOVOLOG) 1 VIAL SQ SCH ×4 (06:21→23:44)
[2021-08-29] MEDS: amLODIPine BESYLATE 10 MG TABLET (FP) PO SCH (11:31)
[2021-08-29] MEDS: PRENATAL VITAMINS W/ FOLIC ACID TABLET (FP) PO SCH (11:32)
[2021-08-29] MEDS: TOLNAFTATE 1% CREAM 15 GM TUBE TP SCH ×2 (11:32→23:44)
[2021-08-29] MEDS: BACITRACIN 15 GM TUBE TOPICAL OINTMENT TP SCH ×2 (11:33→23:44)
[2021-08-29 12:37] LABS: HEMATOCRIT 37.9 % (35.4-49); HEMOGLOBIN 12.6 GM/dL (11.7-16.9); MCH 28.4 pg (25.7-33.7); MCHC 33.2 g/dl (32.0-35.9); MEAN CELL VOLUME 85.7 fl (80-96); MEAN PLT VOLUME 8.9 fl (7.5-11.1); PLATELET COUNT 111 10^3/uL (134-434); RBC 4.42 M/mm3 (4.00-5.60); RDW 16.9 % (11.9-15.9)
[2021-08-29 12:48] LABS: WHITE BLOOD COUNT 1.8 K/mm3 (4.0-10.0)
[2021-08-29 13:04] LABS: ANISOCYTOSIS 0; HELMET CELLS 0; HOWELL-JOLLY BODIES 0; MACROCYTOSIS 0; OVALOCYTE 0; PLATELET ESTIMATE DECREASED; ROULEAU 0; SICKELED CELLS 0; TARGET CELLS 0; TEAR DROP CELLS 0; TOXIC GRANULATION 0
[2021-08-29] MEDS: THIAMINE HCL 100 MG TABLET (FP) PO SCH (23:45)
[2021-08-30] MEDS ORDERED: chlordiazePOXIDE HCL 10 MG CAPSULE PO SCH (05:00)
[2021-08-30] MEDS: hydrOXYzine PAMOATE 25 MG CAPSULE (FP) PO SCH (06:21)
[2021-08-30] MEDS: METHOCARBAMOL 500 MG TABLET PO PRN (06:22)
[2021-08-30] MEDS: INSULIN SLIDING SCALE (NOVOLOG) 1 VIAL SQ SCH (06:23)
[2021-08-30] MEDS: metFORMIN HCL 500 MG TABLET (FP) PO SCH (06:24)
[2021-08-30 08:53] VITALS: BP 122/64; PULSE 73; TEMP 98.1
[2021-08-31] MEDS ORDERED: chlordiazePOXIDE HCL 10 MG CAPSULE PO ONE (05:00)
== END 2021-08-30 09:26 | disposition home or self-care (01) | DRG 774 ==
LOC: YASAS 16:45 → Y3N 08-27 01:24
PROVIDERS: ADMIT Allergy & Immunology; ATTEND Allergy & Immunology
PROC: HZ2ZZZZ Detoxification Services for Substance Abuse Treatment (ICD-10-PCS; principal; 2021-08-27)
DX: F10.230 Alcohol dependence with withdrawal, uncomplicated (principal); F14.20 Cocaine dependence, uncomplicated; D72.819 Decreased white blood cell count, unspecified; I10 Essential (primary) hypertension; E46 Unspecified protein-calorie malnutrition; Z68.28 Body mass index [BMI] 28.0-28.9, adult; E11.9 Type 2 diabetes mellitus without complications; Z79.84 Long term (current) use of oral hypoglycemic drugs; Z86.711 Personal history of pulmonary embolism; Z88.8 Allergy status to other drugs, medicaments and biological substances
CPT/HCPCS: 36415; 80053; 82962; 85025; 85027; 86780; C9803; U0003; U0005

== ENCOUNTER 2023-04-04 21:01 | Inpatient (IN) | payer OTHER ==
[2023-04-05] MEDS ORDERED: MAGNESIUM HYDROX 2400MG/30ML ORAL SUSPENSION 30 ML CUP PO PRN (08:36)
[2023-04-05] MEDS ORDERED: IBUPROFEN 400 MG TABLET (FP) PO PRN (08:36)
[2023-04-05] MEDS ORDERED: DICYCLOMINE HCL 10 MG CAPSULE PO PRN (08:36)
[2023-04-05] MEDS ORDERED: POLYETHYLENE GLYCOL (HEALTHYLAX) 3350 17 GM PACKET PO PRN (08:36)
[2023-04-05] MEDS ORDERED: BENZONATATE 200 MG CAPSULE PO PRN (08:36)
[2023-04-05] MEDS ORDERED: NALOXONE HCL (KLOXXADO) 8 MG SPRAY NS PRN (08:36)
[2023-04-05] MEDS ORDERED: ONDANSETRON *ODT* 4 MG TABLET SL PRN (08:36)
[2023-04-05] MEDS ORDERED: NALOXONE HCL 0.4 MG/ML VIAL IM PRN (08:36)
[2023-04-05] MEDS ORDERED: LOPERAMIDE HCL 2 MG CAPSULE PO PRN (08:36)
[2023-04-05] MEDS ORDERED: ACETAMINOPHEN 325 MG TABLET (FP) PO PRN (08:36)
[2023-04-05] MEDS ORDERED: LORazepam 1 MG TABLET PO PRN (08:36)
[2023-04-05] MEDS ORDERED: BISMUTH SUBSALICYLATE 524 MG/30 ML PO PRN (08:36)
[2023-04-05] MEDS ORDERED: BENZOCAINE/MENTHOL (CHLORASEPTIC ) LOZENGE MM PRN (08:36)
[2023-04-05] MEDS ORDERED: guaiFENesin 600 MG TABLET.ER (FP) PO PRN (08:36)
[2023-04-05] MEDS ORDERED: MAG HYDROX/AL HYDROX/SIMETH 30 ML UNIT-DOSE CUP PO PRN (08:36)
[2023-04-05] MEDS ORDERED: IBUPROFEN 600 MG TABLET (FP) PO PRN (08:36)
[2023-04-05] MEDS ORDERED: LORazepam 2 MG TABLET PO ONE (09:00)
[2023-04-05] MEDS: PRENATAL VITAMINS W/ FOLIC ACID TABLET (FP) PO SCH (10:06)
[2023-04-05 11:07] VITALS: BMI 25.7
[2023-04-05] MEDS ORDERED: cloNIDine HCL 0.1 MG TABLET ONE (11:42)
[2023-04-05] MEDS: LORazepam 2 MG TABLET PO SCH ×3 (12:07→22:31)
[2023-04-05] MEDS ORDERED: cloNIDine HCL 0.1 MG TABLET PO ONE (12:15)
[2023-04-05 12:23] LABS: HEMATOCRIT 38.3 % (35.4-49); HEMOGLOBIN 12.5 GM/dL (11.7-16.9); MCH 27.9 pg (25.7-33.7); MCHC 32.7 g/dl (32.0-35.9); MEAN CELL VOLUME 85.4 fl (80-96); MEAN PLT VOLUME 9.8 fl (7.5-11.1); PLATELET COUNT 114 10^3/uL (134-434); POTASSIUM 3.5 mmol/L (3.5-5.1); RBC 4.49 M/mm3 (4.00-5.60); RDW 16.3 % (11.9-15.9); WHITE BLOOD COUNT 2.4 K/mm3 (4.0-10.0)
[2023-04-05 12:32] LABS: CALCIUM 8.2 mg/dL (8.5-10.1)
[2023-04-05 12:33] LABS: ALBUMIN 2.9 g/dl (3.4-5.0); BLOOD UREA NITROGEN 19.1 mg/dL (7-18)
[2023-04-05 12:36] LABS: CREATININE 1.2 mg/dL (0.55-1.3)
[2023-04-05 12:38] LABS: BILIRUBIN,TOTAL 0.2 mg/dL (0.2-1); TOT PROT 5.6 g/dl (6.4-8.2)
[2023-04-05] MEDS: metFORMIN HCL 500 MG TABLET (FP) PO SCH (17:13)
[2023-04-05] MEDS: hydrOXYzine PAMOATE 25 MG CAPSULE (FP) PO PRN (17:13)
[2023-04-05] MEDS: APIXABAN 5 MG TABLET PO SCH (22:30)
[2023-04-05] MEDS: METHOCARBAMOL 500 MG TABLET PO PRN (22:30)
[2023-04-05] MEDS: ATORVASTATIN CA 20 MG TABLET (FP) PO SCH (22:30)
[2023-04-05] MEDS: MELATONIN 5 MG TABLETS PO SCH (22:30)
[2023-04-05] MEDS: THIAMINE HCL 100 MG TABLET (FP) PO SCH (22:31)
[2023-04-06] MEDS: LORazepam 2 MG TABLET PO SCH ×4 (05:50→22:20)
[2023-04-06] MEDS: metFORMIN HCL 500 MG TABLET (FP) PO SCH ×2 (07:16→17:45)
[2023-04-06] MEDS: PRENATAL VITAMINS W/ FOLIC ACID TABLET (FP) PO SCH (10:42)
[2023-04-06] MEDS: APIXABAN 5 MG TABLET PO SCH ×2 (10:42→22:20)
[2023-04-06] MEDS: amLODIPine BESYLATE 10 MG TABLET (FP) PO SCH (10:42)
[2023-04-06] MEDS: LACTULOSE 20 GM/30 ML UDC (FOR ORAL USE ONLY) PO SCH ×2 (15:10→22:20)
[2023-04-06] MEDS: cloNIDine HCL 0.1 MG TABLET PO PRN ×2 (16:18→22:19)
[2023-04-06] MEDS: hydrOXYzine PAMOATE 25 MG CAPSULE (FP) PO PRN (22:19)
[2023-04-06] MEDS: THIAMINE HCL 100 MG TABLET (FP) PO SCH (22:20)
[2023-04-06] MEDS: ATORVASTATIN CA 20 MG TABLET (FP) PO SCH (22:20)
[2023-04-06] MEDS: MELATONIN 5 MG TABLETS PO SCH (22:23)
[2023-04-07] MEDS: LACTULOSE 20 GM/30 ML UDC (FOR ORAL USE ONLY) PO SCH ×3 (05:49→22:02)
[2023-04-07] MEDS: LORazepam 1 MG TABLET PO SCH ×4 (05:50→22:05)
[2023-04-07] MEDS: metFORMIN HCL 500 MG TABLET (FP) PO SCH ×2 (06:47→17:30)
[2023-04-07] MEDS: PRENATAL VITAMINS W/ FOLIC ACID TABLET (FP) PO SCH (10:14)
[2023-04-07] MEDS: cloNIDine HCL 0.1 MG TABLET PO PRN ×2 (10:15→20:26)
[2023-04-07] MEDS: amLODIPine BESYLATE 10 MG TABLET (FP) PO SCH (10:15)
[2023-04-07] MEDS: APIXABAN 5 MG TABLET PO SCH ×2 (10:15→22:03)
[2023-04-07] MEDS: ATORVASTATIN CA 20 MG TABLET (FP) PO SCH (22:03)
[2023-04-07] MEDS: METHOCARBAMOL 500 MG TABLET PO PRN (22:03)
[2023-04-07] MEDS: MELATONIN 5 MG TABLETS PO SCH (22:03)
[2023-04-07] MEDS: hydrOXYzine PAMOATE 25 MG CAPSULE (FP) PO PRN (22:03)
[2023-04-07] MEDS: THIAMINE HCL 100 MG TABLET (FP) PO SCH (22:03)
[2023-04-08] MEDS ORDERED: LORazepam 0.5 MG TABLET PO PRN
[2023-04-08] MEDS: LORazepam 0.5 MG TABLET PO SCH ×3 (05:52→17:29)
[2023-04-08] MEDS: metFORMIN HCL 500 MG TABLET (FP) PO SCH ×2 (06:19→17:27)
[2023-04-08] MEDS: LACTULOSE 20 GM/30 ML UDC (FOR ORAL USE ONLY) PO SCH (06:49)
[2023-04-08] MEDS: APIXABAN 5 MG TABLET PO SCH (10:30)
[2023-04-08] MEDS: amLODIPine BESYLATE 10 MG TABLET (FP) PO SCH (10:30)
[2023-04-08] MEDS: PRENATAL VITAMINS W/ FOLIC ACID TABLET (FP) PO SCH (10:30)
[2023-04-08] MEDS: hydrOXYzine PAMOATE 25 MG CAPSULE (FP) PO PRN ×2 (11:15→19:32)
[2023-04-08] MEDS: METHOCARBAMOL 500 MG TABLET PO PRN (11:15)
[2023-04-08 21:23] VITALS: BP 171/94; PULSE 83; RESP 16; TEMP 97.8
[2023-04-09] MEDS ORDERED: LORazepam 0.5 MG TABLET PO ONE (05:00)
== END 2023-04-08 22:05 | disposition left against medical advice (07) | DRG 770 ==
LOC: YASAS 21:01 → Y3N 04-05 10:36
PROVIDERS: ADMIT Allergy & Immunology; ATTEND Surgery
PROC: HZ2ZZZZ Detoxification Services for Substance Abuse Treatment (ICD-10-PCS; principal; 2023-04-05)
DX: F10.230 Alcohol dependence with withdrawal, uncomplicated (principal); F14.20 Cocaine dependence, uncomplicated; F12.20 Cannabis dependence, uncomplicated; I10 Essential (primary) hypertension; E78.5 Hyperlipidemia, unspecified; E11.9 Type 2 diabetes mellitus without complications; Z79.84 Long term (current) use of oral hypoglycemic drugs; Z86.711 Personal history of pulmonary embolism; Z79.01 Long term (current) use of anticoagulants; Z93.3 Colostomy status; Z59.01 Sheltered homelessness; Z88.8 Allergy status to other drugs, medicaments and biological substances
CPT/HCPCS: 36415; 80053; 82140; 82962; 85027; 86780; 87635

== ENCOUNTER 2023-07-04 22:18 | Inpatient (IN) | payer OTHER ==
[2023-07-04 22:52] VITALS: BMI 26.4
[2023-07-05] MEDS ORDERED: NALOXONE HCL 0.4 MG/ML VIAL IM PRN (00:31)
[2023-07-05] MEDS ORDERED: IBUPROFEN 400 MG TABLET (FP) PO PRN (00:31)
[2023-07-05] MEDS ORDERED: BENZOCAINE/MENTHOL (CHLORASEPTIC ) LOZENGE MM PRN (00:31)
[2023-07-05] MEDS ORDERED: guaiFENesin 600 MG TABLET.ER (FP) PO PRN (00:31)
[2023-07-05] MEDS ORDERED: BISMUTH SUBSALICYLATE 524 MG/30 ML PO PRN (00:31)
[2023-07-05] MEDS ORDERED: MAG HYDROX/AL HYDROX/SIMETH 30 ML UNIT-DOSE CUP PO PRN (00:31)
[2023-07-05] MEDS ORDERED: NALOXONE HCL (KLOXXADO) 8 MG SPRAY NS PRN (00:31)
[2023-07-05] MEDS ORDERED: LOPERAMIDE HCL 2 MG CAPSULE PO PRN (00:31)
[2023-07-05] MEDS ORDERED: BENZONATATE 200 MG CAPSULE PO PRN (00:31)
[2023-07-05] MEDS ORDERED: MAGNESIUM HYDROX 2400MG/30ML ORAL SUSPENSION 30 ML CUP PO PRN (00:31)
[2023-07-05] MEDS ORDERED: ONDANSETRON *ODT* 4 MG TABLET SL PRN (00:31)
[2023-07-05] MEDS ORDERED: ACETAMINOPHEN 325 MG TABLET (FP) PO PRN (00:31)
[2023-07-05] MEDS ORDERED: POLYETHYLENE GLYCOL (HEALTHYLAX) 3350 17 GM PACKET PO PRN (00:31)
[2023-07-05] MEDS ORDERED: cloNIDine HCL 0.1 MG TABLET PO ONE (00:38)
[2023-07-05] MEDS ORDERED: cloNIDine HCL 0.1 MG TABLET ONE (00:53)
[2023-07-05] MEDS: PRENATAL VITAMINS W/ FOLIC ACID TABLET (FP) PO SCH (10:07)
[2023-07-05] MEDS: LORazepam 2 MG TABLET PO SCH ×3 (10:07→22:34)
[2023-07-05] MEDS: amLODIPine BESYLATE 10 MG TABLET (FP) PO SCH (10:07)
[2023-07-05] MEDS: HYDROCHLOROTHIAZIDE 25 MG TABLET (FP) PO SCH (14:19)
[2023-07-05] MEDS: LORazepam 1 MG TABLET PO PRN (14:20)
[2023-07-05] MEDS: IBUPROFEN 600 MG TABLET (FP) PO PRN (17:03)
[2023-07-05] MEDS: metFORMIN HCL 500 MG TABLET (FP) PO SCH (17:03)
[2023-07-05] MEDS: THIAMINE HCL 100 MG TABLET (FP) PO SCH (22:33)
[2023-07-05] MEDS: ATORVASTATIN CA 20 MG TABLET (FP) PO SCH (22:33)
[2023-07-05] MEDS: MELATONIN 5 MG TABLETS PO SCH (22:33)
[2023-07-06] MEDS: LORazepam 1 MG TABLET PO PRN (01:43)
[2023-07-06] MEDS: LORazepam 1 MG TABLET PO SCH ×4 (06:00→22:29)
[2023-07-06] MEDS: metFORMIN HCL 500 MG TABLET (FP) PO SCH ×2 (07:45→16:49)
[2023-07-06 10:22] LABS: HEMATOCRIT 32.4 % (35.4-49); HEMOGLOBIN 10.4 GM/dL (11.7-16.9); MCH 25.3 pg (25.7-33.7); MCHC 32.2 g/dl (32.0-35.9); MEAN CELL VOLUME 78.7 fl (80-96); MEAN PLT VOLUME 8.4 fl (7.5-11.1); PLATELET COUNT 332 10^3/uL (134-434); RBC 4.11 M/mm3 (4.00-5.60); RDW 21.8 % (11.9-15.9); WHITE BLOOD COUNT 5.6 K/mm3 (4.0-10.0)
[2023-07-06 10:31] LABS: CALCIUM 8.2 mg/dL (8.5-10.1)
[2023-07-06 10:32] LABS: ALBUMIN 2.6 g/dl (3.4-5.0); BLOOD UREA NITROGEN 20.1 mg/dL (7-18)
[2023-07-06 10:35] LABS: CREATININE 1.3 mg/dL (0.55-1.3)
[2023-07-06 10:36] LABS: BILIRUBIN,TOTAL 0.5 mg/dL (0.2-1)
[2023-07-06] MEDS: PRENATAL VITAMINS W/ FOLIC ACID TABLET (FP) PO SCH (10:38)
[2023-07-06] MEDS: amLODIPine BESYLATE 10 MG TABLET (FP) PO SCH (10:39)
[2023-07-06] MEDS: HYDROCHLOROTHIAZIDE 25 MG TABLET (FP) PO SCH (10:39)
[2023-07-06] MEDS ORDERED: POTASSIUM CHLORIDE TABS 20 MEQ TABLET.ER (FP) PO ONE (22:00)
[2023-07-06] MEDS: ATORVASTATIN CA 20 MG TABLET (FP) PO SCH (22:30)
[2023-07-06] MEDS: THIAMINE HCL 100 MG TABLET (FP) PO SCH (22:30)
[2023-07-06] MEDS: MELATONIN 5 MG TABLETS PO SCH (22:30)
[2023-07-06] MEDS ORDERED: cloNIDine HCL 0.1 MG TABLET PO ONE (22:42)
[2023-07-07] MEDS ORDERED: LORazepam 0.5 MG TABLET PO PRN
[2023-07-07] MEDS: LORazepam 0.5 MG TABLET PO SCH ×4 (05:58→22:17)
[2023-07-07] MEDS: metFORMIN HCL 500 MG TABLET (FP) PO SCH ×2 (06:53→16:34)
[2023-07-07] MEDS: IBUPROFEN 600 MG TABLET (FP) PO PRN (06:54)
[2023-07-07] MEDS: PRENATAL VITAMINS W/ FOLIC ACID TABLET (FP) PO SCH (10:38)
[2023-07-07] MEDS: amLODIPine BESYLATE 10 MG TABLET (FP) PO SCH (10:39)
[2023-07-07] MEDS: POTASSIUM CHLORIDE TABS 20 MEQ TABLET.ER (FP) PO SCH ×2 (10:39→21:09)
[2023-07-07] MEDS: HYDROCHLOROTHIAZIDE 25 MG TABLET (FP) PO SCH (10:39)
[2023-07-07] MEDS: ACETAMINOPHEN 325 MG TABLET (FP) PO PRN ×2 (12:58→19:44)
[2023-07-07] MEDS: MELATONIN 5 MG TABLETS PO SCH (21:08)
[2023-07-07] MEDS: THIAMINE HCL 100 MG TABLET (FP) PO SCH (21:09)
[2023-07-07] MEDS: ATORVASTATIN CA 20 MG TABLET (FP) PO SCH (21:10)
[2023-07-08] MEDS: ACETAMINOPHEN 325 MG TABLET (FP) PO PRN ×2 (01:27→08:17)
[2023-07-08] MEDS ORDERED: LORazepam 0.5 MG TABLET PO ONE (05:00)
[2023-07-08] MEDS: metFORMIN HCL 500 MG TABLET (FP) PO SCH (05:59)
[2023-07-08 06:43] VITALS: RESP 17
[2023-07-08] MEDS ORDERED: POTASSIUM CHLORIDE ORAL LIQUID 20 MEQ/15 ML PO ONE (09:09)
[2023-07-08] MEDS: PRENATAL VITAMINS W/ FOLIC ACID TABLET (FP) PO SCH (09:15)
[2023-07-08] MEDS: amLODIPine BESYLATE 10 MG TABLET (FP) PO SCH (09:15)
[2023-07-08] MEDS: HYDROCHLOROTHIAZIDE 25 MG TABLET (FP) PO SCH (09:15)
[2023-07-08 09:34] VITALS: BP 158/108; PULSE 86; TEMP 98.2
== END 2023-07-08 10:50 | disposition home or self-care (01) | DRG 774 ==
LOC: YASAS 22:18 → Y6N 07-05 01:22
PROVIDERS: ADMIT Allergy & Immunology; ATTEND Surgery
PROC: HZ2ZZZZ Detoxification Services for Substance Abuse Treatment (ICD-10-PCS; principal; 2023-07-05)
DX: F10.230 Alcohol dependence with withdrawal, uncomplicated (principal); F14.20 Cocaine dependence, uncomplicated; E78.5 Hyperlipidemia, unspecified; I10 Essential (primary) hypertension; E11.9 Type 2 diabetes mellitus without complications; Z79.84 Long term (current) use of oral hypoglycemic drugs; Z93.3 Colostomy status; Z86.711 Personal history of pulmonary embolism
CPT/HCPCS: 36415; 80053; 80061; 80307; 82962; 85027; 86780; 87635; 87811

== ENCOUNTER 2023-07-06 18:31 | Emergency (ER) | payer OTHER ==
[2023-07-06 18:48] VITALS: BP 136/76; PULSE 90; RESP 18; TEMP 97.6; BMI 26.4
== END 2023-07-06 21:35 | disposition home or self-care (01) ==
LOC: JER 18:31
DX: Z43.3 Encounter for attention to colostomy (principal)
CPT/HCPCS: 99282-25

== ENCOUNTER 2023-09-23 17:14 | Inpatient (IN) | payer OTHER ==
[2023-09-23 18:24] VITALS: BMI 26.4
[2023-09-23] MEDS ORDERED: chlordiazePOXIDE HCL 25 MG CAPSULE PO PRN (19:38)
[2023-09-23] MEDS ORDERED: MAG HYDROX/AL HYDROX/SIMETH 30 ML UNIT-DOSE CUP PO PRN (19:39)
[2023-09-23] MEDS ORDERED: DICYCLOMINE HCL 10 MG CAPSULE PO PRN (19:39)
[2023-09-23] MEDS ORDERED: BISMUTH SUBSALICYLATE 524 MG/30 ML PO PRN (19:39)
[2023-09-23] MEDS ORDERED: MAGNESIUM HYDROX 2400MG/30ML ORAL SUSPENSION 30 ML CUP PO PRN (19:39)
[2023-09-23] MEDS ORDERED: guaiFENesin 600 MG TABLET.ER (FP) PO PRN (19:39)
[2023-09-23] MEDS ORDERED: BENZOCAINE/MENTHOL (CHLORASEPTIC ) LOZENGE MM PRN (19:39)
[2023-09-23] MEDS ORDERED: BENZONATATE 200 MG CAPSULE PO PRN (19:39)
[2023-09-23] MEDS ORDERED: NALOXONE HCL 0.4 MG/ML VIAL IM PRN (19:39)
[2023-09-23] MEDS ORDERED: POLYETHYLENE GLYCOL (HEALTHYLAX) 3350 17 GM PACKET PO PRN (19:39)
[2023-09-23] MEDS ORDERED: IBUPROFEN 600 MG TABLET (FP) PO PRN (19:39)
[2023-09-23] MEDS ORDERED: IBUPROFEN 400 MG TABLET (FP) PO PRN (19:39)
[2023-09-23] MEDS ORDERED: NALOXONE HCL (KLOXXADO) 8 MG SPRAY NS PRN (19:39)
[2023-09-23] MEDS: hydrOXYzine PAMOATE 25 MG CAPSULE (FP) PO PRN (20:58)
[2023-09-23] MEDS: ATORVASTATIN CA 20 MG TABLET (FP) PO SCH (22:34)
[2023-09-23] MEDS: THIAMINE HCL 100 MG TABLET (FP) PO SCH (22:34)
[2023-09-23] MEDS: chlordiazePOXIDE HCL 25 MG CAPSULE PO SCH (22:34)
[2023-09-23] MEDS: MELATONIN 5 MG TABLETS PO SCH (22:35)
[2023-09-24] MEDS: PRENATAL VITAMINS W/ FOLIC ACID TABLET (FP) PO SCH (10:39)
[2023-09-24] MEDS: amLODIPine BESYLATE 10 MG TABLET (FP) PO SCH (10:39)
[2023-09-24 10:46] LABS: HEMATOCRIT 34.6 % (35.4-49); HEMOGLOBIN 11.5 GM/dL (11.7-16.9); MCH 29.3 pg (25.7-33.7); MCHC 33.3 g/dl (32.0-35.9); MEAN PLT VOLUME 9.6 fl (7.5-11.1); PLATELET COUNT 43 10^3/uL (134-434); RBC 3.94 M/mm3 (4.00-5.60); RDW 15.7 % (11.9-15.9)
[2023-09-24 10:47] LABS: CHLORIDE 111 mmol/L (98-107); SODIUM 144 mmol/L (136-145)
[2023-09-24 10:52] LABS: WHITE BLOOD COUNT 1.5 K/mm3 (4.0-10.0)
[2023-09-24 10:56] LABS: ALBUMIN 2.6 g/dl (3.4-5.0); CO2 28 mmol/L (21-32)
[2023-09-24 10:59] LABS: BLOOD UREA NITROGEN 17.9 mg/dL (7-18); GLUCOSE,RANDOM 126 mg/dL (74-106); SGOT/AST 33 U/L (15-37); SGPT/ALT 19 U/L (13-61)
[2023-09-24 11:01] LABS: ALK PHOS 84 U/L (45-117); BILIRUBIN,TOTAL 0.2 mg/dL (0.2-1); TOT PROT 5.2 g/dl (6.4-8.2)
[2023-09-24 11:21] LABS: ANION GAP 5 mmol/L (4-13); POTASSIUM 2.8 mmol/L (3.5-5.1)
[2023-09-24] MEDS: HYDROCHLOROTHIAZIDE 25 MG TABLET (FP) PO SCH (13:27)
[2023-09-24] MEDS: POTASSIUM CHLORIDE ORAL LIQUID 20 MEQ/15 ML PO SCH (13:27)
[2023-09-24] MEDS: LOSARTAN POTASSIUM 50 MG TABLET PO SCH (13:32)
[2023-09-24] MEDS: LACTULOSE 20 GM/30 ML UDC (FOR ORAL USE ONLY) PO SCH (13:44)
[2023-09-24] MEDS: ONDANSETRON *ODT* 4 MG TABLET SL PRN (15:23)
[2023-09-24] MEDS: LOPERAMIDE HCL 2 MG CAPSULE PO PRN (19:29)
[2023-09-25] MEDS: chlordiazePOXIDE HCL 25 MG CAPSULE PO SCH (05:30)
[2023-09-25] MEDS: POTASSIUM CHLORIDE ORAL LIQUID 20 MEQ/15 ML PO SCH (06:11)
[2023-09-25] MEDS: ACETAMINOPHEN 325 MG TABLET (FP) PO PRN (20:03)
[2023-09-25] MEDS: METHOCARBAMOL 500 MG TABLET PO PRN (22:15)
[2023-09-26] MEDS ORDERED: chlordiazePOXIDE HCL 10 MG CAPSULE PO PRN
[2023-09-26] MEDS: chlordiazePOXIDE HCL 10 MG CAPSULE PO SCH (05:57)
[2023-09-26 06:38] VITALS: RESP 16; TEMP 97.3
[2023-09-26 09:07] VITALS: BP 150/80; PULSE 73
[2023-09-27] MEDS ORDERED: chlordiazePOXIDE HCL 10 MG CAPSULE PO SCH (05:00)
[2023-09-28] MEDS ORDERED: chlordiazePOXIDE HCL 10 MG CAPSULE PO ONE (05:00)
== END 2023-09-26 11:33 | disposition left against medical advice (07) | DRG 770 ==
LOC: YASAS 17:14 → Y6N 19:45
PROVIDERS: ADMIT Allergy & Immunology; ATTEND Surgery
PROC: HZ2ZZZZ Detoxification Services for Substance Abuse Treatment (ICD-10-PCS; principal; 2023-09-23)
DX: F10.230 Alcohol dependence with withdrawal, uncomplicated (principal); F14.20 Cocaine dependence, uncomplicated; F12.20 Cannabis dependence, uncomplicated; D70.2 Other drug-induced agranulocytosis; E87.6 Hypokalemia; I10 Essential (primary) hypertension; E11.9 Type 2 diabetes mellitus without complications; R79.89 Other specified abnormal findings of blood chemistry; Z93.3 Colostomy status; Z88.8 Allergy status to other drugs, medicaments and biological substances
CPT/HCPCS: 36415; 80053; 80307; 82140; 82962; 84132; 85027; 86780; 87635; 93005; 93010; Q0162